=== PATIENT | female | born 2000 | race Caucasian/White ===

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

== ENCOUNTER 2021-02-18 12:39 | Inpatient (IN) ==
[2021-02-18] MEDS ORDERED: NICOTINE 14 MG/24 HR PATCH TD SCH (13:15)
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
[2021-02-18 14:12] LABS: Appearance Urine Turbid (Clear); Bacteria Urine Automated 4+ (Negative); Bilirubin Urine Negative (Negative); Blood Urine Negative (Negative); Color Urine Yellow; Epithelial Cell Urine Auto >30 /lpf (0-5); Glucose Urine UA Negative (Negative); Ketones Urine Negative (Negative); Leukocyte Esterase Urine Negative (Negative); Nitrite Urine Positive (Negative); Protein Urine Negative (Negative); Specific Gravity Urine 1.022 (1.000-1.030); Urobilinogen Urine Negative (Negative)
[2021-02-18 14:14] LABS: Basophils # (auto) 0.03 K/uL (0-0.2); Basophils % (auto) 0.3 %; Eosinophils # (auto) 0.22 K/uL (0-0.5); Hemoglobin 14.3 g/dL (12.0-16.0); Immature Granulocytes # (auto) 0.05 K/uL (0.00-0.02); Immature Granulocytes % (auto) 0.5 %; Lymphocytes % (auto) 32.6 %; Mean Corpuscular Hemoglobin 31.2 pg (25-34); Mean Corpuscular Hgb Conc 34.9 g/dL (32-36); Mean Corpuscular Volume 89.5 fL (80-100); Mean Platelet Volume 8.9 fL (7.4-10.4); Monocytes # (auto) 1.09 K/uL (0.11-0.59); Monocytes % (auto) 9.9 %; Neutrophils # (auto) 6.04 K/uL (1.4-6.5); Neutrophils % (auto) 54.7 %; Platelet Count 360 K/uL (130-400); RDW Coefficient of Variation 13.2 % (11.5-14.5); RDW Standard Deviation 43.1 fL (36.4-46.3); Red Blood Count 4.58 M/uL (4.2-5.4); White Blood Count 11.03 K/uL (4.8-10.8)
[2021-02-18 14:17] LABS: Amphetamines+Metham, Urine Neg (Neg); Barbiturates, Urine Neg (Neg); Benzodiazepine, Urine Neg (Neg); Cocaine, Urine Neg (Neg); MDMA (Ecstacy), Urine Neg (Neg); Methadone, Urine Neg (Neg); Opiate, Urine Neg (Neg); Phencyclidine, Urine Neg (Neg)
[2021-02-18 14:33] LABS: Albumin Level 3.7 gm/dl (3.4-5.0); Creatinine Clr Calc Pharmacy 151.6 ml/min; Est GFR (African American) 148.9; Est GFR (Non-African American) 128.5
[2021-02-18 14:38] LABS: Pregnancy Test, Serum Negative (Negative)
[2021-02-18 14:43] LABS: Albumin Globulin Ratio 0.9 (0.9-2); Bilirubin,Total 0.2 mg/dl (0.2-1); Globulin 4.2 gm/dl (2.5-4.0); Thyroid Stimulating Hormone 1.43 uIu/ml (0.300-4.500); Total Protein 7.9 gm/dl (6.4-8.2)
[2021-02-18 15:21] LABS: Acetaminophen < 2 ug/ml (10-30); Salicylate 3.1 mg/dl (2.8-20)
[2021-02-18] MEDS ORDERED: ALUMINUM/MAGNESIUM SUSP 30 ML UDC PO PRN (19:49)
[2021-02-18] MEDS ORDERED: SODIUM CHLORIDE 0.65% NA SOLN 45 ML (OCEAN) PRN (19:49)
[2021-02-18] MEDS ORDERED: BISMUTH SUBSALICYLATE LIQD 236 ML PO PRN (19:49)
[2021-02-18] MEDS ORDERED: MAGNESIUM HYDROXIDE SUSP 30 ML UDC PO PRN (19:49)
[2021-02-18] MEDS ORDERED: ACETAMINOPHEN 325 MG TAB PO PRN (19:49)
[2021-02-18] MEDS ORDERED: hydrOXYzine HCl 25 MG TAB PO PRN ×2 (19:49)
[2021-02-19] MEDS: NICOTINE 21 MG/24 HR TDSY TD SCH (11:23)
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
[2021-02-20] MEDS: NICOTINE 21 MG/24 HR TDSY TD SCH (10:06)
[2021-02-20] MEDS ORDERED: FLUoxetine HCL 10 MG CAP PO STA (12:28)
[2021-02-20] MEDS ORDERED: NICOTINE POLACRILEX 2 MG GUM MT PRN (12:28)
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
[2021-02-21] MEDS: FLUoxetine HCL 20 MG CAP PO SCH (08:53)
[2021-02-22] MEDS: FLUoxetine HCL 20 MG CAP PO SCH (09:07)
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
== END 2021-02-22 20:30 | disposition home or self-care (01) | DRG 881 ==
LOC: ED 12:39 → 3S 19:49